=== PATIENT | female | born 1995 | race Caucasian/White ===

== ENCOUNTER 2022-08-11 01:14 | Emergency (ER) | payer SELFPAY ==
[~2022-08-11] VITALS: Ht 165.1 cm; Wt 75.7 kg
--- NOTE | 2022-08-11 01:52 | NUR ---
Dr Wilkinson into eval patient.
[2022-08-11] MEDS ORDERED: ONDANSETRON ODT 4 MG TAB.RAPDIS SL ONE (02:00)
[2022-08-11] MEDS ORDERED: CYCLOBENZAPRINE HCL 10 MG TABLET PO ONE (02:00)
[2022-08-11] MEDS ORDERED: ONDANSETRON ODT 4 MG TAB.RAPDIS ONE (02:02)
[2022-08-11] MEDS ORDERED: CYCLOBENZAPRINE HCL 10 MG TABLET ONE (02:02)
--- NOTE | 2022-08-11 02:05 | NUR ---
Patient out of the unit via wheelchair for ct scan.
--- NOTE | 2022-08-11 02:12 | NUR ---
Patient back from ct scan with no distress noted.
[2022-08-11] MEDS ORDERED: ONDA4TAB11 PO (04:11)
[2022-08-11] MEDS ORDERED: CYCL10TA9 PO (04:11)
--- NOTE | 2022-08-11 04:35 | NUR ---
Patient discharged to home in stable condition. Written and verbal after care instructions given. Patient verbalizes understanding of instructions. Stressed follow up or return to ER for worsening s/s. Patient walked out with steady gait.
[2022-08-11 04:42] VITALS: BP 132/85
== END 2022-08-11 04:43 | disposition home or self-care (01) ==
LOC: ER 01:19
DX: T78.40XA Allergy, unspecified, initial encounter (principal); R51.9 Headache, unspecified; R11.2 Nausea with vomiting, unspecified; M54.9 Dorsalgia, unspecified; W01.0XXA Fall on same level from slipping, tripping and stumbling without subsequent striking against object, initial encounter; Y93.89 Activity, other specified; Y99.8 Other external cause status
CPT/HCPCS: 70450; A4663; Q0162